=== PATIENT | male | born 1985 | race Two or more races ===

== ENCOUNTER 2016-09-12 20:13 | Emergency (ER) | payer OTHER ==
[~2016-09-12] VITALS: Ht 165.1 cm; Wt 59.0 kg
[2016-09-12 20:36] VITALS: BP 130/70
[2016-09-12] MEDS ORDERED: Norco 5mg/325mg tab ORAL ONE (20:45)
[2016-09-12] MEDS ORDERED: Tetanus/Diptheria/Pertussis Vaccine 0.5ml Syr IM ONE (20:45)
[2016-09-12] MEDS ORDERED: IBUPROFEN600 MG ORAL (21:19)
[2016-09-12] MEDS ORDERED: NORCO 5-325 TA1 EAC1 ORAL (21:19)
[2016-09-12 22:03] VITALS: BP 130/70
--- NOTE | 2016-09-12 23:25 | Emergency Room Report ---
History of Present Illness General Chief Complaint: Upper Extremity Injury Source: Patient Present Illness HPI The patient is a 30-year-old male who presented after increased left hand pain after reportedly getting his hand caught in a machine. The patient stated that he accidentally got his hand caught between the rollers. 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 The patient is right-hand dominant. Patient does not remember prior tetanus vaccine Allergies: Coded Allergies: No Known Allergies (Unverified , 09/12/16) Patient History Past Medical History: see triage record Reviewed Nursing Documentation: PMH: Agreed, PSxH: Agreed Nursing Documentation-PMH Past Medical History: No Stated History Review of Systems All Other Systems: negative except mentioned in HPI Physical Exam Vital Signs Date Time Temp Pulse Resp B/P Pulse Ox O2 Delivery O2 Flow Rate FiO2 09/12/16 20:25 97.9 86 16 130/70 98 Room Air General Appearance: well appearing, no apparent distress, alert, GCS 15 Head: normocephalic, atraumatic ENT: hearing grossly normal, normal voice Neck: full range of motion, supple Respiratory: no respiratory distress, speaking full sentences Cardiovascular #1: normal inspection, normal peripheral pulses Musculoskeletal: no calf tenderness, swelling - swelling to digits 2-4 with abrasions and skin avulsions overlying fingers. 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 Differential diagnosis included was not limited to compartment syndrome, fracture, dislocation, laceration among others. The patient was given TDap. He is given [place] for pain. Patient was noted to have the left multiple areas of skin avulsions to his digits. Last Vital Signs Date Time Temp Pulse Resp B/P Pulse Ox O2 Delivery O2 Flow Rate FiO2 09/12/16 20:25 97.9 86 16 130/70 98 Room Air Status: improved Disposition: HOME, SELF-CARE Condition: Stable Scripts Ibuprofen* (MOTRIN*) 600 Mg Tablet 600 MG ORAL Q8H Y for For Pain, #30 TAB 0 Refills Prov: Yonny Murillo 09/12/16 Hydrocodone Bit/Acetaminophen 5-325* (NORCO 5-325 TABLET*) 1 Each Tablet 1 TAB ORAL Q4H Y for For Pain, #20 TAB Prov: Yonny Murillo 09/12/16 Referrals: NOT CHOSEN [facility]/,REFERRING (PCP) Patient Instructions: Crush Injury, Fingers or Toes, [id number] Ynony Murillo Sep 12, 2016 23:25
--- NOTE | 2016-09-16 08:03 | Diagnostic Imaging Report ---
Indication: PAIN Technique: 3 views left hand Comparison: none Findings: No acute fractures. No dislocations. Joint spaces are preserved Impression: Negative
== END 2016-09-12 22:03 | disposition home or self-care (01) ==
LOC: EMR 20:35
DX: S67.22XA Crushing injury of left hand, initial encounter (principal); S60.411A Abrasion of left index finger, initial encounter; S60.413A Abrasion of left middle finger, initial encounter; S60.415A Abrasion of left ring finger, initial encounter; Y92.511 Restaurant or cafe as the place of occurrence of the external cause; W31.89XA Contact with other specified machinery, initial encounter; Y99.0 Civilian activity done for income or pay; Y92.22 Religious institution as the place of occurrence of the external cause; Z23 Encounter for immunization
CPT/HCPCS: 90471; 90715; 96372; 99284

== ENCOUNTER → 2016-09-18 | Emergency (ER) | payer OTHER ==
[~2016-09-18] VITALS: Ht 157.5 cm; Wt 68.0 kg
[~2016-09-18] MED LIST: IBUPROFEN600 MG ORAL; NORCO 5-325 TA1 EAC1 ORAL
[2016-09-18 13:16] VITALS: BP_SYST 113; BP_SYST 117; BP_DIAS 89; BP_DIAS 92
--- NOTE | 2016-09-18 15:44 | Emergency Room Report ---
History of Present Illness General Chief Complaint: Upper Extremity Injury Source: Patient Present Illness HPI The patient is a 30-year-old male presenting for left hand pain. He was seen in this emergency department previously after his left hand was crushed at work. He states that it went between 2 rollers. X-ray at that time was unremarkable. He states the pain has continued and is now a 4/10 dull ache. He states he is unable to fully open his hand. He has not been able to followup with anyone. Pain worse with movement. He denies any numbness or tingling Allergies: Coded Allergies: No Known Allergies (Unverified , 09/12/16) Patient History Past Medical History: see triage record Pertinent Family History: none Reviewed Nursing Documentation: PMH: Agreed, PSxH: Agreed Nursing Documentation-PMH Past Medical History: No Stated History Review of Systems All Other Systems: negative except mentioned in HPI Physical Exam Vital Signs Date Time Temp Pulse Resp B/P Pulse Ox O2 Delivery O2 Flow Rate FiO2 09/18/16 12:45 98.2 81 20 113/89 97 Room Air Sp02 EP Interpretation: reviewed, normal General Appearance: no apparent distress, alert, GCS 15, non-toxic Head: normocephalic, atraumatic Eyes: bilateral eye PERRL, bilateral eye normal inspection Musculoskeletal: other - unable to fully extend at IP joints, tender - diffuse L hand Neurologic: alert, oriented x3, responsive, motor strength/tone normal, sensory intact, speech normal Psychiatric: judgement/insight normal, memory normal, mood/affect normal, no suicidal/homicidal ideation Skin: normal color, no rash, warm/dry, well hydrated, wd healing/no infection noted, abrasions - palmar surface of L hand Medical Decision Making PA Attestation Dr. Soliz is my supervising physician. Patient management was discussed with my supervising physician Diagnostic Impression: Primary Impression: Crushing injury of hand, left Qualified Codes: S67.22XD - Crushing injury of left hand, subsequent encounter ER Course The patient is a 30-year-old male presenting for left hand pain. Ddx considered include but not limited to sprain/strain, fracture, contusion, tendon injury, among others PE: No apparent distress Left hand: Unable to fully extend the interphalangeal joints. Full active flexion of fingers. Sensation is intact. There are multiple abrasions to the palmar surface. No signs of infection The patient will continue using medications as prescribed. He needs to followup with hand specialist. He also may need MRI. He was informed of this via interpretation by Susy. X-ray none needed at this time as previous was unremarkable and no new injury occurred ER precautions given Last Vital Signs Date Time Temp Pulse Resp B/P Pulse Ox O2 Delivery O2 Flow Rate FiO2 09/18/16 13:16 98.1 83 18 117/92 98 Room Air Status: improved Disposition: HOME, SELF-CARE Condition: Improved Referrals: NOT CHOSEN [facility]/,REFERRING (PCP) Patient Instructions: Hand Contusion, Magnetic Resonance Imaging Additional Instructions: I discussed my findings with the patient. All questions and concerns have been answered. Treatment and medication compliance have been addressed. I advised the patient that they need to follow up with PMD in 3-5 days. Return to ED if symptoms worsen, new symptoms arise, or if needed for any reason. Patient verbalized understanding of discharge instructions. The patient was informed via interpretation that he needs to followup with a hand specialist and will also likely need an MRI. RAMYA CORREIA Sep 18, 2016 15:44
== END | disposition home or self-care (01) ==
LOC: EMR 13:01
DX: S67.22XD Crushing injury of left hand, subsequent encounter (principal); S60.512D Abrasion of left hand, subsequent encounter; W23.0XXD Caught, crushed, jammed, or pinched between moving objects, subsequent encounter
CPT/HCPCS: 99282